=== PATIENT | female | born 1995 | race Caucasian/White ===

== ENCOUNTER 2018-07-03 15:59 | Emergency (ER) | payer MEDICAID, OTHER ==
[~2018-07-03] VITALS: Ht 165.1 cm; Wt 50.7 kg
[2018-07-03 16:50] VITALS: Ht 165.1 cm; Wt 50.7 kg
[2018-07-03] MEDS ORDERED: ONDANSETRON (ODT) 4 MG TAB ODT STA (17:25)
[2018-07-03] MEDS ORDERED: ACETAMINOPHEN 325 MG TAB PO ONE (17:30)
[2018-07-03] MEDS ORDERED: ACET500C5 PO (18:21)
[2018-07-03] MEDS ORDERED: ONDA4TAB14 PO (18:21)
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
[2018-07-03 18:50] VITALS: BP 110/76; PULSE 65; RESP 18
== END 2018-07-03 18:50 | disposition home or self-care (01) ==
LOC: FTE 15:59
DX: S09.90XA Unspecified injury of head, initial encounter (principal); V47.5XXA Car driver injured in collision with fixed or stationary object in traffic accident, initial encounter
CPT/HCPCS: Z7610 ×2; 99283